=== PATIENT | female | born 1990 | race Caucasian/White ===

== ENCOUNTER 2016-07-28 17:44 | Emergency (ER) | payer MEDICAID ==
[2016-07-28] MEDS ORDERED: NS 2,000 ML IV ONE (17:48)
[2016-07-28] MEDS ORDERED: ONDANSETRON 4 MG/2 ML VIAL IVP ONE (17:48)
--- NOTE | 2016-07-28 17:52 | EDPHY ---
H & P HPI/ROS: HPI CHIEF COMPLAINT: Alcohol intoxication, shortness of breath HISTORY OF PRESENT ILLNESS: This patient is a 26-year-old female denies any significant past medical history except for attention deficit hyperactivity disorder, she presents emergency room by EMS from the [facility] for alcohol intoxication. 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 She states that she left work and drank a bunch of alcohol she tells me she had 3 very large beer. She states she was recently diagnosed with possible pneumonia on x-ray on Wednesday from Urgent Care in is taking amoxicillin. She tells me she is having worsening cough. She denies pain anywhere specifically denies chest pain. She told the [facility] staff that she is on antibiotics recently diagnosed with pneumonia and she is not feeling well and they referred her to the emergency room. Please did make contact with her she was sleeping in her car and highly intoxicated with alcohol was originally brought to the [facility] earlier. Past Medical History: Attention deficit hyperactivity disorder, recently diagnosed with pneumonia on amoxicillin Past Surgical History: Denies significant surgical history Social History: Occasional alcohol use, denies drugs, denies marijuana, denies tobacco works as an x-ray tech Family History: noncontributory ROS REVIEW OF SYSTEMS: A comprehensive 10 point review of systems is otherwise negative aside from elements mentioned in the history of present illness. Exam Constitutional highly intoxicated with alcohol , smells of alcohol, triage nursing summary reviewed, vital signs reviewed, awake/alert. Eyes normal conjunctivae and sclera, EOMI, horizontal beating nystagmus consistent acute alcohol intoxication HENT normal inspection, atraumatic, moist mucus membranes, no epistaxis, neck supple/ no meningismus, no raccoon eyes. Respiratory clear to auscultation bilaterally, normal breath sounds, no respiratory distress, no wheezing. Cardiovascular tachycardic, regular rhythm, no murmur, no edema, distal pulses normal. Gastrointestinal soft, non-tender, no rebound, no guarding, normal bowel sounds, no distension, no pulsatile mass. Genitourinary no CVA tenderness. Musculoskeletal no midline vertebral tenderness, full range of motion, no calf swelling, no tenderness of extremities, no meningismus, good pulses, neurovascularly intact. Skin pink, warm, & dry, no rash, skin atraumatic. Neurologic awake, alert and oriented x 3, AAOx3, moves all 4 extremities equally, motor intact, sensory intact, CN II-XII intact, normal cerebellar, normal vision, slurring of speech Psychiatric normal mood/affect. Heme/Lymph/Immune no lymphadenopathy. Differential Diagnosis: Includes but is not limited to in a particular order, acute alcohol intoxication, dehydration, electrolyte abnormality, worsening pneumonia, aspiration pneumonia, pulmonary embolism as she is on control Medical Decision Making: Patient will have blood work drawn should be hydrated gently with IV fluids, Zofran for nausea patient had a two view chest x-ray to evaluate for pneumonia worsening pneumonia, will check a D-dimer to make sure she is not a PE. It is noted here her vitals are slightly tachycardic, no hypoxia. Re-evaluation: ED x-ray chest two view: negative for acute cardiopulmonary disease specifically no evidence pneumonia. It was noted that there are air-fluid levels in her chest x-ray in her abdomen noted however patient does not have any abdominal pain nausea vomiting. No suspicion for bowel obstruction. 1918: Re-evaluation at this time this patient is resting comfortably no acute distress. She denies any abdominal pain she is not vomiting she is requesting be discharged. She appears well nontoxic. Her blood work, x-ray and vitals have been reviewed it is noted her alcohol level was elevated. Patient be given a take-home pack Librium. Source: Patient, EMS Constitutional: Initial Vital Signs Heart Rate 108 H 07/28/16 17:56 Respiratory Rate 14 07/28/16 17:56 Blood Pressure 140/99 H 07/28/16 17:56 O2 Sat (%) 91 L 07/28/16 17:56 O2 Delivery Mode Room Air O2 (L/minute) 2 Allergies/Adverse Reactions: No Known Allergies Allergy (Unverified 06/28/09 19:37) Home Medications: Medication Instructions Recorded Norgestimate-Ethinyl Estradiol 1 each PO 11/25/11 [Ortho Tri-Cyclen] chlordiazePOXIDE 25MG PREPK#6 1 btl TAKEHOME DAILY #1 btl 07/28/16 [Librium 25 mg Prepack#6] Medical Decision Making - Data Points Laboratory Results: Laboratory Results 07/28/16 17:46 07/28/16 17:46 07/28/16 07/28/16 18:49 17:46 WBC 7.95 10^3/uL (3.80-9.50) RBC 4.99 10^6/uL (4.18-5.33) Hgb 15.0 g/dL (12.6-16.3) Hct 44.6 % (38.0-47.0) MCV 89.4 fL (81.5-99.8) MCH 30.1 pg (27.9-34.1) MCHC 33.6 g/dL (32.4-36.7) RDW 13.3 % (11.5-15.2) Plt Count 362 10^3/uL (150-400) MPV 9.3 fL (8.7-11.7) Neut % (Auto) 46.7 % (39.3-74.2) Lymph % (Auto) 45.9 H % (15.0-45.0) [place] % (Auto) 4.9 % (4.5-13.0) Eos % (Auto) 1.1 % (0.6-7.6) Baso % (Auto) 0.9 % (0.3-1.7) Nucleat RBC Rel Count 0.0 % (0.0-0.2) Absolute Neuts (auto) 3.71 10^3/uL (1.70-6.50) Absolute Lymphs (auto) 3.65 H 10^3/uL (1.00-3.00) Absolute Monos (auto) 0.39 10^3/uL (0.30-0.80) Absolute Eos (auto) 0.09 10^3/uL (0.03-0.40) Absolute Basos (auto) 0.07 10^3/uL (0.02-0.10) Absolute Nucleated RBC 0.00 10^3/uL (0-0.01) Immature Gran % 0.5 % (0.0-1.1) Immature Gran # 0.04 10^3/uL (0.00-0.10) D-Dimer < 0.27 ug/mLFEU (0.00-0.50) Sodium 150 H mEq/L (134-144) Potassium 4.6 mEq/L (3.5-5.2) Chloride 109 mEq/L (97-110) Carbon Dioxide 24 mEq/l (22-31) Anion Gap 17 mEq/L (8-16) BUN 6 L mg/dL (7-23) Creatinine 0.9 mg/dL (0.6-1.0) Estimated GFR > 60 Glucose 98 mg/dL (70-100) Calcium 9.3 mg/dL (8.5-10.4) Total Bilirubin 0.3 mg/dL (0.1-1.4) Conjugated Bilirubin 0.3 mg/dL (0.0-0.5) Unconjugated Bilirubin 0.0 mg/dL (0.0-1.1) AST 34 IU/L (14-46) ALT 32 IU/L (9-52) Alkaline Phosphatase 99 IU/L (38-126) Total Protein 8.6 H g/dL (6.3-8.2) Albumin 4.4 g/dL (3.5-5.0) Lipase 140.0 IU/L (23-300) Beta HCG, Qual NEGATIVE Urine Color PALE YELLOW Urine Appearance CLEAR Urine pH 6.0 (5.0-7.5) Ur Specific [place] 1.009 (1.002-1.030) Urine Protein NEGATIVE (NEGATIVE) Urine Ketones NEGATIVE (NEGATIVE) Urine Blood NEGATIVE (NEGATIVE) Urine Nitrate NEGATIVE (NEGATIVE) Urine Bilirubin NEGATIVE (NEGATIVE) Urine Urobilinogen NEGATIVE EU (0.2-1.0) Ur Leukocyte Esterase NEGATIVE (NEGATIVE) Ur Culture Indicated? NOT INDICATED (NI) Urine Glucose NEGATIVE (NEGATIVE) Ethyl Alcohol 274 H mg/dL (0-10) Medications Given: Discontinued Medications Sodium Chloride (Ns) 2,000 mls @ 0 mls/hr IV ONCE ONE PRN Reason: Wide Open Stop: 07/28/16 17:49 Last Admin: 07/28/16 18:05 Dose: 2,000 mls Ondansetron HCl (Zofran) 4 mg IVP EDNOW ONE Stop: 07/28/16 17:49 Last Admin: 07/28/16 18:04 Dose: Not Given Departure - Departure Disposition: Home, Routine, Self-Care Clinical Impression: Alcohol intoxication Qualifiers: Complication of substance-induced condition: uncomplicated Qualifier Code: ( F10.120) Alcohol abuse with intoxication, uncomplicated Condition: Good Instructions: Alcohol Intoxication (ED) Additional Instructions: 1. Stay well-hydrated drink lots of fluids. 2. return emergency room if develops any worsening symptoms questions or concerns. Referrals: NONE *PRIMARY CARE P,. [Primary Care Provider] - As per Instructions Prescriptions: chlordiazePOXIDE 25MG PREPK#6 [Librium 25 mg Prepack#6] 1 btl TAKEHOME DAILY #1 btl
[2016-07-28 17:57] LABS: % IMMATURE GRANULYOCYTES 0.5 % (0.0-1.1); ABSOLUTE IMMATURE GRANULOCYTES 0.04 10^3/uL (0.00-0.10); ADD DIFF? NO; ADD MORPH? NO; ADD SCAN? NO; ATYPICAL LYMPHOCYTE FLAG 20 (0-99); FRAGMENT RBC FLAG 0 (0-99); HEMATOCRIT 44.6 % (38.0-47.0); LEFT SHIFT FLG 0 (0-99); LIPEMIA HEMOLYSIS FLAG 80 (0-99); MEAN CELL HEMOGLOBIN 30.1 pg (27.9-34.1); MEAN CELL HEMOGLOBIN CONCENTR. 33.6 g/dL (32.4-36.7); MEAN CELL VOLUME 89.4 fL (81.5-99.8); MEAN PLATELET VOLUME 9.3 fL (8.7-11.7); PLATELET CLUMPS FLAG 0 (0-99); PLATELET COUNT 362 10^3/uL (150-400); RED BLOOD CELL COUNT 4.99 10^6/uL (4.18-5.33); RED CELL DISTRIBUTION WIDTH 13.3 % (11.5-15.2)
[2016-07-28 17:59] VITALS: RESP 14
[2016-07-28 18:09] LABS: ALANINE AMINOTRANSFERASE 32 IU/L (9-52); ALBUMIN 4.4 g/dL (3.5-5.0); ALKALINE PHOSPHATASE 99 IU/L (38-126); ANION GAP 17 mEq/L (8-16); ASPARTATE AMINOTRANSFERASE 34 IU/L (14-46); BILIRUBIN,TOTAL 0.3 mg/dL (0.1-1.4); BILIRUBIN-CONJUGATED 0.3 mg/dL (0.0-0.5); CALCIUM 9.3 mg/dL (8.5-10.4); CARBON DIOXIDE 24 mEq/l (22-31); CHLORIDE 109 mEq/L (97-110); CREATININE 0.9 mg/dL (0.6-1.0); ETHANOL SERUM 274 mg/dL (0-10); GLOMERULAR FILTRATION RATE > 60; GLUCOSE 98 mg/dL (70-100); POTASSIUM 4.6 mEq/L (3.5-5.2); SODIUM 150 mEq/L (134-144); TOTAL PROTEIN 8.6 g/dL (6.3-8.2)
--- NOTE | 2016-07-28 18:24 | DX ---
Chest, PA and Lateral History: Abdominal pain, possible pneumonia, EtOH Findings: Lungs are clear, without infiltrate or consolidation. Heart size is normal. There is no vicki nopathy or mass lesion. There is no pleural effusion or pneumothorax. There is a mild thoracolumbar s coliosis concave to the left. No free air or dilated bowel loop is seen beneath either hemidiaphragm. There are scattered small air-fluid levels in the upper abdomen. Impression: 1. Normal. No evidence for pneumonia. 2. Air-fluid levels in the upper abdomen raise the possibility for a bowel obstruction. Consider obta ining 2 views of the abdomen.
[2016-07-28 19:00] LABS: COLOR PALE YELLOW; LEUKOCYTE ESTERASE,URINE NEGATIVE (NEGATIVE); NITRITE,URINE NEGATIVE (NEGATIVE)
[2016-07-28] MEDS: CHLORDIAZEPOXIDE 25MG PREPK#6 BTL TAKEHOME ONE ×2 (19:31→20:00)
[2016-07-28 19:35] VITALS: TEMP 99; O2SAT 95
[2016-07-28 20:02] VITALS: BP 143/84; PULSE 99
== END 2016-07-28 20:23 | disposition home or self-care (01) ==
LOC: EDUNIT#
DX: F10.120 Alcohol abuse with intoxication, uncomplicated (principal)
CPT/HCPCS: G0480; J2405

== ENCOUNTER → 2018-04-17 | Outpatient (CLI) | payer MEDICAID | LOC: FIMAGING 07:46 | PROVIDERS: ATTEND Psychiatry & Neurology Neurology | DX: R56.9 Unspecified convulsions (principal); R22.1 Localized swelling, mass and lump, neck; Z87.828 Personal history of other (healed) physical injury and trauma ==

== ENCOUNTER → 2018-04-21 | Outpatient (CLI) | payer MEDICAID ==
--- NOTE | 2018-04-21 14:28 | CPEEG ---
4-HOUR VIDEO EEG DATE OF STUDY: 04/21/2018 DATE OF INTERPRETATION: 04/21/2018 INTERPRETATION: This 4-hour video EEG recording is normal. There were no potentially epileptogenic abnormalities present in the awake or sleep recordings. During the video EEG monitoring session, the patient did not have any clinical events. REPORT: This 4-hour video EEG contains 10 Hz alpha activity of the posterior head regions. The back ground activity was normal and symmetric. There was no abnormal activation at rest, during hypervent ilation or photic stimulation. The patient became drowsy and fell into sustained sleep during the st udy. There was no abnormal activation during drowsiness, sleep, or during times of arousal. The pat ient did not have any clinical events during the video EEG monitoring session. /[id number]/MODL
== END ==
LOC: FCPNEURO 07:42
PROVIDERS: ATTEND Psychiatry & Neurology Neurology
DX: R56.9 Unspecified convulsions (principal)

== ENCOUNTER 2018-05-06 21:03 | Observation (INO) | payer MEDICAID ==
[2018-05-06] MEDS ORDERED: ACETAMINOPHEN 325 MG TAB PO ONE (21:08)
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
[2018-05-06 21:36] LABS: PLATELET COUNT 324 10^3/uL (150-400)
[2018-05-06] MEDS ORDERED: ONDANSETRON DISINTEGRATING 4 MG TAB PO PRN (22:15)
[2018-05-06] MEDS ORDERED: ACETAMINOPHEN 325 MG TAB PO PRN (22:15)
[2018-05-06] MEDS ORDERED: ONDANSETRON 4 MG/2 ML VIAL IVP PRN (22:15)
[2018-05-06] MEDS ORDERED: levETIRAcetam 1000MG/NACL 100 ML IV ONE (22:16)
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
[2018-05-07 05:25] LABS: PLATELET COUNT 275 10^3/uL (150-400)
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
[2018-05-07] MEDS ORDERED: levETIRAcetam 500 MG TAB PO SCH (09:00)
[2018-05-07] MEDS ORDERED: ARIPiprazole 5 MG TAB PO SCH (09:00)
[2018-05-07 12:23] VITALS: BP 122/82
--- NOTE | 2018-05-07 12:48 | ASMTCAGE ---
CAGE Do people annoy you by Answers: No criticizing your drinking or drug use? Do you feel guilty about Answers: No your drinking or drug use? Date Signed: 05/07/2018 12:47 PM Electronically Signed By:WILLIAM Connelly
--- NOTE | 2018-05-07 14:40 | ASMTCMCOM ---
CM Note CM Note Notes: Pt in with seizure from detox. Pt declines return to detox even if she qualifies. Pt CAGE completed, declines ETOH resources. Pt has hx TBI and BPD. No CM d/c needs identified. Date Signed: 05/07/2018 02:39 PM Electronically Signed By:WILLIAM Connelly
--- NOTE | 2018-05-07 20:57 | GCON ---
NEUROLOGY CONSULT DATE OF CONSULTATION: 05/07/2018 REFERRING PHYSICIAN: Alexandro Simpson MD CHIEF COMPLAINT: Seizure. HISTORY OF PRESENT ILLNESS: The patient is a very pleasant 28-year-old lady whom I know from my outpatient clinic. She has a complicated history of alcoholism and convulsive events. Based on her detailed history, it is not clear whether she has any unprovoked seizures. She certainly has a history suggestive of provoked seizures from alcohol withdrawal and acute intoxication. She has had some head injury in the past which is an epilepsy risk factor. However, again, there is no definitive evidence of unprovoked seizures at this point. Because of the confusion, I was in the process of transferring her care out of my practice at [facility] for further evaluation and inpatient video EEG monitoring for definitive diagnosis. However, in the midst of this, she was being admitted to inpatient detox for alcoholism and drank a significant amount of alcohol the morning of her admission and began having a seizure at the facility and was transferred back here. Her alcohol level was 81 mg/dL on admission. The test was negative. She has had no further events. She has been on Keppra prescribed from a different facility and we have continued it. She has had no side effects whatsoever. No mood changes, homicidal, or suicidal ideation. No depression. She is doing well on this medication. REVIEW OF SYSTEMS: Ten-point review of systems was done and only pertinent to the HPI. For past medical history, social history, family history, home medications, allergies, see Dr. Simpson's note. PHYSICAL EXAMINATION: VITAL SIGNS: Blood pressure 122/82, afebrile 36.7, heart rate 80s. GENERAL APPEARANCE: In no acute distress. Very pleasant. NEUROLOGIC: Mental status exam is normal. Her cranial nerve exam 2-7 is normal. Motor: No focal weakness or convulsive movements in my presence. IMPRESSION/PLAN: 1. Alcoholism. 2. Convulsions, not otherwise specified. Overall, it remains unclear whether the patient has a seizure disorder versus purely provoked seizures from alcohol withdrawal and acute alcohol intoxication. She understands. She will continue Keppra 500 mg b.i.d. indefinitely until we have a definitive diagnosis. She has no side effects from this medication. She will be on indefinite driving restrictions and seizure precautions. She is agreeable. I am transferring her care out of my neurology practice to the [facility] Department of Neurology for definitive diagnosis. She will need inpatient video EEG monitoring. She understands that we are transferring her care out of my neurology practice. She understands the referral has been made and she is arranging her appointment currently. No further recommendations. She should be on alcohol withdrawal protocol, thiamine,and banana bag. When she is cleared from Hospital Medicine, she can discharge home and reschedule her detoxification admission. Overall, the most important factor is becoming sober. We talked about this at great length. We discussed morbidity and mortality of alcoholism. She understands. Forty-five total minutes floor time reviewing outpatient and inpatient notes and current records. This included direct counseling and coordination of care. We will continue to follow as needed. Please do not hesitate to call if there are any questions or change in neurologic status with this very pleasant patient. /[id number]/MODL MTDD
--- NOTE | 2018-05-08 03:18 | GDS ---
DISCHARGE DIAGNOSES: 1. Bipolar disorder. 2. Seizure disorder with multiple seizures noted at a detox facility. CONSULTATIONS: Homero Chang MD of neurology. BRIEF HISTORY: Please see dictated H and P for complete details. In brief, the patient is a 28-year -old female with bipolar disorder and seizure disorder, who presented after multiple seizures that we re witnessed. She had a night of heavy drinking preceding the seizures. She presented to a detox fa cili and was brought over by EMS. Dr. Chang has seen her and feels her seizures were related to alco hol. He recommends no changes to her Keppra dosing. PHYSICAL EXAM: VITAL SIGNS: On day of discharge, blood pressure of 122/82, heart rate 84, respirati ons 16, O2 saturation 95% on room air, temp of 98 degrees Fahrenheit. GENERAL: This is a pleasant f emale in no apparent distress. HEENT: Head is normocephalic, atraumatic. Eyes without scleral icte abdulaziz. HEART: Regular rate and rhythm. LUNGS: Clear. PSYCH: Normal mood and affect. NEURO: No f ocal deficits detected. RESULTS PENDING: None. DIET: Per previous. ACTIVITY: As tolerated. DISCHARGE MEDICATIONS: Please continue previous home medications. FOLLOWUP INSTRUCTIONS: Follow up with Neurology and PCP. /[id number]/MODL
== END 2018-05-07 14:20 | disposition home or self-care (01) ==
LOC: EDUNIT# → F3N 22:42
PROVIDERS: ADMIT Internal Medicine; ATTEND Otolaryngology
DX: T51.0X1A Toxic effect of ethanol, accidental (unintentional), initial encounter (principal); G40.409 Other generalized epilepsy and epileptic syndromes, not intractable, without status epilepticus; F31.9 Bipolar disorder, unspecified; F10.221 Alcohol dependence with intoxication delirium; F10.231 Alcohol dependence with withdrawal delirium; F10.288 Alcohol dependence with other alcohol-induced disorder; Y90.4 Blood alcohol level of 80-99 mg/100 ml; F17.210 Nicotine dependence, cigarettes, uncomplicated; Z87.820 Personal history of traumatic brain injury
CPT/HCPCS: 96374; 99285; G0378; G0480; J1953

== ENCOUNTER → 2018-11-11 | Outpatient (CLI) | payer MEDICAID | LOC: FIMAGING 14:32 | PROVIDERS: ATTEND Obstetrics & Gynecology | DX: R10.2 Pelvic and perineal pain (principal) ==